=== PATIENT | male | born 1965 | race Two or more races ===

== ENCOUNTER 2016-05-17 21:11 | Inpatient (IN) | payer OTHER ==
[~2016-05-17] VITALS: Ht 175.3 cm; Wt 63.0 kg
[2016-05-17] MEDS ORDERED: IV SET PRIMARY 1 EA INFUS.SET MC ONE ×2 (21:22→22:56)
[2016-05-17] MEDS ORDERED: IV NS 0.9% 2,000 ML ONE (21:23)
[2016-05-17 21:29] LABS: BASOPHILS # (AUTO) 0.1 /CMM (0.0-0.2); BASOPHILS % (AUTO) 0.8 % (0.0-2.0); DIFF TOTAL % 100 %; EOSINOPHILS # (AUTO) 0.1 /CMM (0.0-0.7); EOSINOPHILS % (AUTO) 0.6 % (0.0-6.0); HEMATOCRIT 47 % (39-51); HEMOGLOBIN 14.9 g/dL (13.5-17.5); LYMPHOCYTES # (AUTO) 6.7 /CMM (0.8-4.8); LYMPHOCYTES % (AUTO) 40.8 % (20.0-44.0); MEAN CORPUSCULAR HEMOGLOBIN 32 PG (26.0-33.0); MEAN CORPUSCULAR HGB CONC 32 g/dl (31.0-36.0); MEAN CORPUSCULAR VOLUME 99 fL (80-96); NEUTROPHILS # (AUTO) 8.6 /CMM (1.8-8.9); NEUTROPHILS % (AUTO) 51.8 % (43.0-81.0); PLATELET COUNT (AUTO) 345 /CMM (150-450); RED BLOOD CELL COUNT(AUTO) 4.72 MIL/uL (4.5-6.0); WHITE BLOOD COUNT (AUTO) 16.5 K/uL (4.3-11.0)
[2016-05-17] MEDS ORDERED: phenytoin SODIUM IV 250 MG/5 ML VIAL IV ONE ×2 (21:29→21:30)
[2016-05-17] MEDS ORDERED: phenytoin SODIUM IV 1,000 MG in IV NS 0.9% 100 ML IV ONE (21:30)
[2016-05-17] MEDS ORDERED: IV NS 0.9% 1,000 ML BAG IV ONE (21:30)
[2016-05-17] MEDS ORDERED: IV NS 0.9% 100 ML IV ONE (21:30)
[2016-05-17] MEDS ORDERED: IV SET PRIMARY PUMP SET 1 EA INFUS.SET MC ONE ×3 (21:30→22:05)
[2016-05-17] MEDS ORDERED: IV FILTER 5 MICRON 1 EA INFUS.SET MC ONE (21:32)
[2016-05-17] MEDS ORDERED: TOPI-37 PO (21:38)
[2016-05-17 21:43] LABS: INR 1.03 (0.87-1.13); PROTHROMBIN TIME 10.8 SECS (9.5-12.7)
[2016-05-17 21:44] LABS: BILIRUBIN,DIRECT 0.1 mg/dL (0.0-0.2); BILIRUBIN,TOTAL 0.3 mg/dL (0.2-1.0); CALCIUM, SERUM 9.5 mg/dL (8.5-10.1); CREATININE 1.4 mg/dL (0.6-1.3); INDIRECT BILIRUBIN 0.2 mg/dL (0.0-1.1); TOTAL PROTEIN, SERUM 7.1 g/dL (6.4-8.2)
[2016-05-17] MEDS ORDERED: PROPOFOL 100 ML IV ONE (21:52)
[2016-05-17 21:53] LABS: POTASSIUM 3.7 mmol/L (3.5-5.1)
[2016-05-17 21:55] VITALS: BP 109/45
[2016-05-17] MEDS ORDERED: PROPOFOL 100 ML IV PRN (22:00)
[2016-05-17] MEDS ORDERED: CEFTRIAXONE 1GM BAG (ER ONLY) 50 ML IV ONE ×3 (22:00→22:56)
[2016-05-17] MEDS ORDERED: LORAZEPAM INJ 2 MG/ML VIAL ONE (22:01)
[2016-05-17 22:26] LABS: KETONES,URINE NEGATIVE (NEGATIVE); LEUKOCYTE ESTERASE ,URINE NEGATIVE (NEGATIVE); PH,URINE 5.5 (5.0-8.0)
[2016-05-17] MEDS ORDERED: CEFTRIAXONE 2 G in IV D5W 100 ML IV SCH (22:30)
[2016-05-17] MEDS ORDERED: VANCOMYCIN 1 GM in IV D5W 250 ML IV ONE (22:30)
[2016-05-17] MEDS ORDERED: LORAZEPAM INJ 2 MG/ML VIAL IV ONE (22:30)
[2016-05-17 22:37] LABS: CANNABINOID, URINE NEGATIVE (NEGATIVE); PHENCYCLIDINE SCREEN,URINE NEGATIVE (NEGATIVE)
[2016-05-17 22:41] LABS: LACTIC ACID 22.8 mmol/L (0.4-2.0)
[2016-05-17 22:42] LABS: ADD UA MICROSCOPIC YES
[2016-05-17 22:48] LABS: ADD URINE CULTURE NO; WBC,URINE 0-2 /HPF (0-3)
[2016-05-17 22:49] LABS: *LACTIC ACID REFLEX FLAG YES
[2016-05-17] MEDS ORDERED: ACYCLOVIR IV 1 GM in IV D5W 250 ML IV ONE (23:00)
[2016-05-17] MEDS ORDERED: FLUO-120 PO (23:12)
[2016-05-17 23:26] LABS: ABG BASE EXCESS -15.7 mmol/L; ABG HCO3 13.5 mmol/L; ABG PCO2 44.1 mmHg (35.0-45.0); ABG PH 7.104 (7.350-7.450); ABG PO2 81.3 mmHg (75.0-100.0); ALLEN TEST Pass; AaDO2 153.2 mmHg; O2Hb 89.7 % (94.0-97.0)
[2016-05-17 23:36] LABS: CSF APPEARANCE CLEAR (CLEAR); CSF COLOR COLORLESS (COLORLESS)
[2016-05-17 23:37] LABS: CSF GLUCOSE 80 mg/dL (40-70); CSF PROTEIN 76.9 mg/dL (15-45); CSF WHITE BLOOD CELL COUNT 1 /cumm (0-5)
[2016-05-17 23:51] VITALS: BP 121/51
[2016-05-18] VITALS (40 sets, daily range): BP systolic 96–148; BP diastolic 47–78
[2016-05-18] MEDS ORDERED: ONDANSETRON HCL/PF 4 MG/2 ML VIAL IVP PRN
[2016-05-18] MEDS ORDERED: ACETAMINOPHEN 650 MG/SUPP.RECT RC PRN
[2016-05-18] MEDS ORDERED: LORAZEPAM INJ 2 MG/ML VIAL IV PRN
[2016-05-18] MEDS ORDERED: IV D5W 250 ML IV ONE ×2 (00:10→00:45)
[2016-05-18] MEDS ORDERED: IV SET PRIMARY PUMP SET 1 EA INFUS.SET MC ONE ×4 (00:10→09:19)
[2016-05-18] MEDS ORDERED: VANCOMYCIN 1 GM VIAL ONE (00:10)
[2016-05-18] MEDS ORDERED: ACYCLOVIR IV 1 GM/20 ML VIAL IV ONE (00:12)
[2016-05-18] MEDS ORDERED: SODIUM BICARBONATE SYR 50 MEQ/50 ML DISP.SYRIN ONE (00:16)
[2016-05-18] MEDS ORDERED: SECONDARY IV SET 1 EA INFUS.SET MC ONE ×4 (00:19→11:12)
[2016-05-18] MEDS ORDERED: IV D5W 100 ML IV ONE (00:28)
[2016-05-18] MEDS ORDERED: SODIUM BICARBONATE SYR 50 MEQ/50 ML DISP.SYRIN IV ONE (00:30)
[2016-05-18] MEDS ORDERED: VANCOMYCIN 1 GM in IV D5W 250 ML IV SCH (00:30)
[2016-05-18] MEDS ORDERED: LORAZEPAM INJ 2 MG/ML VIAL ONE (00:34)
[2016-05-18] MEDS ORDERED: LEVETIRACETAM (500MG) 500 MG/5 ML VIAL IV ONE (00:36)
[2016-05-18] MEDS ORDERED: IV NS 0.9% 100 ML IV ONE (00:54)
[2016-05-18] MEDS: LEVETIRACETAM (500MG) 500 MG in IV NS 0.9% 100 ML IV SCH ×2 (00:55→11:46)
[2016-05-18] MEDS ORDERED: PROPOFOL 100 ML IV ONE (01:08)
[2016-05-18] MEDS: IV NS 0.9% 1,000 ML BAG IV PRN ×3 (01:41→23:01)
[2016-05-18] MEDS: PROPOFOL 100 ML IV PRN ×2 (02:08→08:45)
[2016-05-18] MEDS ORDERED: D5W IV SCH (05:00)
[2016-05-18] MEDS ORDERED: ACYCLOVIR IV SCH (05:00)
[2016-05-18 05:03] LABS: ALBUMIN 3.4 g/dL (3.4-5.0); BILIRUBIN,TOTAL 0.2 mg/dL (0.2-1.0); CALCIUM, SERUM 7.6 mg/dL (8.5-10.1); CREATININE 1.1 mg/dL (0.6-1.3); PHOSPHORUS 1.3 mg/dL (2.5-4.9); TOTAL PROTEIN, SERUM 5.9 g/dL (6.4-8.2)
[2016-05-18 05:24] LABS: POTASSIUM 2.8 mmol/L (3.5-5.1)
[2016-05-18] MEDS ORDERED: POTASSIUM CL. PREMIX PERIPHER. 50 ML ONE (06:14)
[2016-05-18] MEDS: POTASSIUM CL. PREMIX PERIPHER. 50 ML IV SCH ×4 (06:18→10:17)
[2016-05-18] MEDS ORDERED: FEE PK DOSING 1 MIN EA MC ONE (09:10)
[2016-05-18] MEDS ORDERED: SUCCINYLCHOLINE CHLORIDE 20 MG/ML VIAL IV ONE (09:10)
[2016-05-18] MEDS ORDERED: ETOMIDATE 2 MG/ML VIAL IV ONE (09:10)
[2016-05-18] MEDS ORDERED: ROCURONIUM BROMIDE 50 MG/5 ML IV ONE (09:11)
[2016-05-18 09:15] LABS: ABG HCO3 19.1 mmol/L; ABG PCO2 32.6 mmHg (35.0-45.0); ABG PH 7.385 (7.350-7.450); ABG PO2 112.5 mmHg (75.0-100.0); ABG TOTAL HEMOGLOBIN 13.5 G/dL (13.5-18.0); ALLEN TEST Pass; AaDO2 99.2 mmHg; O2Hb 96.2 % (94.0-97.0)
[2016-05-18] MEDS: VANCOMYCIN 0.75 GM in IV D5W 250 ML IV SCH ×2 (09:22→16:52)
[2016-05-18] MEDS: PANTOPRAZOLE 40 MG VIAL IV SCH (09:23)
[2016-05-18] MEDS: ACYCLOVIR IV 600 MG in IV D5W 100 ML IV SCH ×2 (09:23→13:02)
[2016-05-18] MEDS ORDERED: DOSE PER PHARMACY (MD SPECIFY MEDICATION) 1 EA XX PRN (09:30)
[2016-05-18] MEDS: CEFTRIAXONE 2 G in IV D5W 100 ML IV SCH ×2 (11:10→23:00)
[2016-05-18] MEDS ORDERED: NEUTRA PHOS 1 POWD.PACKET GT ONE (12:30)
[2016-05-18] MEDS: PHENYTOIN SODIUM IV 50 MG/ML VIAL IV SCH ×2 (13:01→21:00)
[2016-05-18 14:12] LABS: ABG BASE EXCESS -5.2 mmol/L; ABG HCO3 18.2 mmol/L; ABG PCO2 29.5 mmHg (35.0-45.0); ABG PH 7.408 (7.350-7.450); ABG PO2 107.1 mmHg (75.0-100.0); ABG TOTAL HEMOGLOBIN 13.7 G/dL (13.5-18.0); ALLEN TEST Pass; AaDO2 108.2 mmHg; O2Hb 96.2 % (94.0-97.0)
[2016-05-18 16:55] LABS: CALCIUM, SERUM 7.9 mg/dL (8.5-10.1); POTASSIUM 3.4 mmol/L (3.5-5.1)
[2016-05-18 16:58] LABS: PHOSPHORUS 2.1 mg/dL (2.5-4.9)
[2016-05-18] MEDS ORDERED: POTASSIUM PHOSPHATE MM 15 MMOL in IV D5W 250 ML IV SCH (19:00)
[2016-05-18] MEDS ORDERED: POTASSIUM CHLORIDE 20 MEQ POWDER PACKET PO ONE (19:30)
[2016-05-18] MEDS: POTASSIUM PHOSPHATE MM 7.5 MMOL in IV D5W 100 ML IV SCH ×2 (19:46→22:40)
[2016-05-19] VITALS (16 sets, daily range): BP systolic 96–122; BP diastolic 37–78
[2016-05-19] MEDS: PHENYTOIN SODIUM IV 50 MG/ML VIAL IV SCH ×2 (04:41→13:10)
[2016-05-19 05:20] LABS: DIFF TOTAL % 100 %; EOSINOPHILS % (AUTO) 0.4 % (0.0-6.0); HEMATOCRIT 37 % (39-51); HEMOGLOBIN 12.3 g/dL (13.5-17.5); LYMPHOCYTES # (AUTO) 1.1 /CMM (0.8-4.8); LYMPHOCYTES % (AUTO) 11.7 % (20.0-44.0); MEAN CORPUSCULAR HEMOGLOBIN 32 PG (26.0-33.0); MEAN CORPUSCULAR HGB CONC 34 g/dl (31.0-36.0); MEAN CORPUSCULAR VOLUME 95 fL (80-96); MONOCYTES # (AUTO) 0.7 /CMM (0.1-1.30); MONOCYTES % (AUTO) 6.9 % (2.0-12.0); NEUTROPHILS # (AUTO) 7.9 /CMM (1.8-8.9); PLATELET COUNT (AUTO) 167 /CMM (150-450); RED BLOOD CELL COUNT(AUTO) 3.85 MIL/uL (4.5-6.0); WHITE BLOOD COUNT (AUTO) 9.8 K/uL (4.3-11.0)
[2016-05-19 05:26] LABS: CALCIUM, SERUM 7.9 mg/dL (8.5-10.1); CREATININE 0.7 mg/dL (0.6-1.3); PHOSPHORUS 1.8 mg/dL (2.5-4.9); POTASSIUM 3.4 mmol/L (3.5-5.1)
[2016-05-19] MEDS ORDERED: FLUO-119 PO (07:34)
[2016-05-19] MEDS: PANTOPRAZOLE 40 MG VIAL IV SCH (08:08)
[2016-05-19] MEDS ORDERED: PHEN50VI4 IV (08:57)
[2016-05-19] MEDS ORDERED: IV NS 0.9% 1,000 ML IV PRN (09:30)
[2016-05-19] MEDS ORDERED: IV SET PRIMARY PUMP SET 1 EA INFUS.SET MC ONE (09:47)
[2016-05-19] MEDS: Potassium Phosphate meq 11 MEQ in IV D5W 100 ML IV SCH ×2 (09:50→12:15)
[2016-05-19] MEDS: CEFTRIAXONE 2 G in IV D5W 100 ML IV SCH (10:56)
[2016-05-20] MEDS ORDERED: CEFTRIAXONE 1 G in IV D5W 50 ML IV SCH (11:00)
[2016-05-21 11:57] LABS: *BAC BODY FLUID CULTURE STERIL Not Indicated (.); *BAC HAEMOP. INFLUENZA B AG Negative (Negative); *BAC ORGANISM ID Not indicated. (.); *BAC SPECIMEN SOURCE Urine (.); *BACT BETA STREP (GROUP B) AG Negative (Negative); *BACT NEISSERIA MENING. AG Negative (Negative); *BACT STREP PNEUMONIAE AG Negative (Negative)
== END 2016-05-19 16:30 | disposition short-term general hospital (02) | DRG 871 ==
LOC: ER 21:18 → ICU 23:14
PROVIDERS: ADMIT Nurse Practitioner Acute Care; ATTEND Nurse Practitioner Acute Care
PROC: 5A1935Z Respiratory Ventilation, Less than 24 Consecutive Hours (ICD-10-PCS; principal; 2016-05-17)
PROC: 009U3ZX Drainage of Spinal Canal, Percutaneous Approach, Diagnostic (ICD-10-PCS; 2016-05-17)
PROC: 0BH18EZ Insertion of Endotracheal Airway into Trachea, Via Natural or Artificial Opening Endoscopic (ICD-10-PCS; 2016-05-17)
PROC: 05H533Z Insertion of Infusion Device into Right Subclavian Vein, Percutaneous Approach (ICD-10-PCS; 2016-05-18)
DX: A41.9 Sepsis, unspecified organism (principal); J96.01 Acute respiratory failure with hypoxia; J96.02 Acute respiratory failure with hypercapnia; J69.0 Pneumonitis due to inhalation of food and vomit; F84.0 Autistic disorder; E87.2 Acidosis; Q21.1 Atrial septal defect; G40.901 Epilepsy, unspecified, not intractable, with status epilepticus; E11.9 Type 2 diabetes mellitus without complications; R65.20 Severe sepsis without septic shock
CPT/HCPCS: 31720; 36415; 36600; 70450-TC; 71010-TC; 80048-TC; 80053-TC; 80061-TC; 80076-TC; 80185-TC; 80305; 81000-TC; 82803-TC; 82962-TC; 83605-TC; 83735-TC; 84100-TC; 85025-TC; 85730-TC; 87040-TC; 87070-TC; 87081-TC; 87086-TC; 87802; 87899; 89051-TC; 94002-TC; 94003-TC; 94799-TC; 95819-TC; A4606; C9113; J0133; J0330; J0696; J1165; J1953; J2060; J3370; J3480; J3490; J7030; J7060